=== PATIENT | male | born 1945 | race Caucasian/White ===

== ENCOUNTER 2022-03-03 10:49 | Emergency (ER) | payer MEDICARE, OTHER, SELFPAY ==
[2022-03-03] VITALS (8 sets, daily range): BP systolic 115–177; BP diastolic 67–113; PULSE 75–107; RESP 18; TEMP 36.3; O2SAT 97–99
--- NOTE | 2022-03-03 15:17 | ED.MALEGU ---
HPI - Male Genitourinary General Chief complaint: Urogenital-Male Stated complaint: pain in testicles and scrotum-absess Time Seen by Provider: 03/03/22 15:06 Mode of arrival: Wheelchair History of Present Illness HPI Narrative: 76-year-old male nonsmoker with history of chronic scrotal abscesses, typically managed by the urology group at [facility] presents at their request for evaluation of pain, swelling and drainage from his scrotum. Patient reports he has been having difficulty with pain, swelling and abscesses that have been traditionally treated by antibiotics, most recently he had been on antibiotics a few months ago. He is not a great historian and is unclear the name of his urologist but thinks there at [place]. He states he has been having increasing pain and swelling with incontinence over the past days or weeks. He denies any fever chills nor nausea or vomiting. He denies chest pain or shortness of breath. He denies abdominal pain constipation or diarrhea. Related Data Previous Rx's Medication Instructions Recorded sulfamethoxazole 800 1 tab PO BID 10 Days #20 tab 03/03/22 mg-trimethoprim 160 mg tablet (Bactrim DS) Allergies Allergy/AdvReac Type Severity Reaction Status Date / Time No Known Drug Allergies Allergy Verified 03/03/22 11:19 Review of Systems Review of Systems Narrative: GENERAL: Denies chills, fatigue, malaise, fever, sweats. HEENT: Denies sinus pain, ear pain, sore throat, difficulty swallowing, dizziness. RESPIRATORY: Denies dyspnea, cough, wheezing, hemoptysis, sputum. CARDIOVASCULAR: Denies chest pain, palpitations, orthopnea, edema, GASTROINTESTINAL: Denies nausea, vomiting, abdominal pain, diarrhea, constipation, melena. : See HPI. MUSCULOSKELETAL: denies weakness, joint pain, or bony pain SKIN: see HPI NEUROLOGIC: Denies weakness, headache, numbness, change in speech, confusion, seizures, incoordination. PSYCHIATRIC: No concerning psychosocial issues. 12 point review of systems is negative except for those stated above Exam Narrative Exam Narrative: GENERAL: [76] year old patient appears stated age. Well-developed patient, in mild distress. GCS 15 HEAD: Atraumatic. Normocephalic. EYES: Pupils equal round and reactive. Extraocular motions intact. No scleral icterus. No injection or drainage. ENT: Nose without bleeding, purulent drainage. Throat without erythema, tonsillar hypertrophy or exudate. Airway patent. NECK: Trachea midline. Non tender CARDIOVASCULAR: Tachycardic but regular rhythm without murmurs, gallops, or rubs. RESPIRATORY: Clear to auscultation. Breath sounds equal bilaterally. No wheezes, rales, or rhonchi. GASTROINTESTINAL: Abdomen soft, non-tender, nondistended. : Swollen, tender, mildly erythematous scrotum with multiple areas of induration, no obvious fluctuance, concealed phallus EXTREMITIES: No edema or joint tenderness. BACK: Nontender without deformity or crepitance. No flank tenderness. NEURO: AOx3. SKIN: No rash or erythema of visible areas Initial Vital Signs Initial Vital Signs: Vital Signs Temperature 97.4 F L 03/03/22 11:14 Pulse Rate 106 H 03/03/22 11:14 Respiratory Rate 18 03/03/22 11:14 Blood Pressure 117/78 03/03/22 11:14 Pulse Oximetry 98 03/03/22 11:14 Course Orders Ordered: ED Orders 03/03/22 15:18 US scrotum Stat 03/03/22 15:56 Complete Blood Count AUTO DIFF Stat Comprehensive Metabolic Panel Stat Discontinued Medications Lidocaine/Sodium Bicarbonate (Lido 1%/Sod Bicarb 8.4% (10ml) 10 Ml Syringe) 10 ml INJ NOW ONE Stop: 03/03/22 17:17 Last Admin: 03/03/22 17:23 Dose: 10 ml Documented by: ROSIE Consultations Consultation #1: [facility] called, he does go to their group. Records requested. call center consultant urology paged (Cyndi) discussed clinical course, physical exam findings and ultrasound findings. Requests discharge on Bactrim, close follow-up and return precautions. Time: 15:28 Vital Signs Vital signs: Vital Signs - 8 hr 03/03/22 14:53 03/03/22 15:00 03/03/22 15:30 Pulse Rate 107 H 90 78 Blood Pressure 115/81 120/79 116/67 Pulse Oximetry 97 97 97 03/03/22 16:00 03/03/22 16:01 03/03/22 16:30 Pulse Rate 87 83 85 Blood Pressure 170/94 H 177/113 H Pulse Oximetry 99 98 97 03/03/22 17:00 Pulse Rate 75 Blood Pressure Pulse Oximetry 97 MDM - Male Genitourinary Lab Data Result diagrams: 03/03/22 15:56 03/03/22 15:56 Labs: Lab Results 03/03/22 03/03/22 Range/Units 15:56 15:56 WBC 8.2 (4.5-11.0) X10^3/uL RBC 3.56 L (4.5-5.9) X10^6/uL Hgb 11.0 L (13.5-17.5) g/dL Hct 32.7 L (41-53) % MCV 91.7 (80-100) fL MCH 30.9 (26-34) PG MCHC 33.7 (30-36) % RDW 14.9 H (11.6-14.8) % Plt Count 236 (150-400) X10^3/uL Neut % (Auto) 75.7 H (50-75) % Lymph % (Auto) 12.4 L (25-40) % [place] % (Auto) 7.0 (3-14) % Eos % (Auto) 3.5 (2-4) % Baso % (Auto) 1.4 (0-2) % Neut # (Auto) 6200 (3693-4113) /uL Lymph # (Auto) 1000 L (5430-6287) /uL [place] # (Auto) 600 (0-900) /uL Eos # (Auto) 300 (0-450) /uL Baso # (Auto) 100 (0-100) /uL Sodium 140 (137-145) mmol/L Potassium 4.2 (3.4-5.1) mmol/L Chloride 106 (98-107) mmol/L Carbon Dioxide 29 (22-32) mmol/L BUN 22 H (9-20) mg/dL Creatinine 0.79 (0.66-1.25) mg/dL Estimated GFR > 60 (>60) mL/min BUN/Creatinine Ratio 27.8 H (6-22) Glucose 140 H (80-110) mg/dL Calcium 9.2 (8.4-10.2) mg/dL Total Bilirubin 0.4 (0.2-1.3) mg/dL AST 20 (17-59) IU/L ALT 13 (<50) IU/L Alkaline Phosphatase 107 (38-126) U/L Total Protein 8.1 (6.3-8.2) g/dL Albumin 3.5 (3.5-5.0) g/dL Globulin 4.6 H (1.7-4.1) g/dL Albumin/Globulin Ratio 0.8 L (1.0-2.8) Discharge Plan Departure Patient Disposition: Home Clinical Impression: Abscess of scrotal wall Instructions: DI for Skin Abscess Activity Restrictions/Additional Instructions: *You have been diagnosed with [scrotal wall infection with possible abscess *What to do: *Please continue to take your regular medications as directed. [ x] New medication prescriptions sent to your pharmacy: [[facility] ] [ ] New medication written as a paper prescription [ ] No new medications given *Please follow up with your urologist in the next few days. Please call tomorrow morning, let them know that you were seen in the emergency department and that Dr. Banks and Dr. Hanna want you seen in follow up this week *Return to Emergency Department if you should have any new, worsening or concerning symptoms, such as [fever greater than 101 F, shaking chills, worsening pain, persistent vomiting or other bothersome symptoms] Prescriptions: New sulfamethoxazole-trimethoprim [Bactrim DS] 800-160 mg tablet 1 tab PO BID 10 Days Qty: 20 0RF Referrals: Todd Daniel MD [Primary Care Provider] -
--- NOTE | 2022-03-03 15:18 | DI.US.S_ITS ---
PROCEDURE: US SCROTUM INDICATIONS: PAIN; SWELLING TECHNIQUE: Real-time scanning was performed of the scrotum and testicles, with image documentation. Color and pulse Doppler interrogation was performed of both testicles. COMPARISON: None. FINDINGS: Right: Testicle is normal in size at 4.8 x 2.4 x 2.1 cm, and homogenous in echotexture. Epididymal head cyst is noted measuring 5 x 5 x 7 mm. No varicoceles. Large hydrocele is present. Overlying scrotal skin is normal in thickness. Left: Testicle is normal in size at 4.5 x 2.5 x 2.5 cm, and homogeneous in echotexture. Epididymis is not visualized. No hydrocele or varicoceles. Overlying scrotal skin demonstrates thickening as well as focus of heterogeneous echogenicity measuring approximately 2.6 x 2.5 x 3.6 cm. Doppler: Color and pulse Doppler demonstrate normal and symmetric arterial flow in both testicles. IMPRESSION: Large right hydrocele. Focus of heterogeneous echogenicity within the scrotal wall on the left which has imaging appearance consistent with prior clinical history of abscess. Dictated by: Jessica Gutiérrez M.D. on 03/03/2022 at 16:35 Approved by: Jessica Gutiérrez M.D. on 03/03/2022 at 16:37
[2022-03-03 16:06] LABS: Add Manual Diff / Slide Review NO; Basophils Absolute Auto 100 /uL (0-100); Basophils Percent Auto 1.4 % (0-2); Eosinophils Absolute Auto 300 /uL (0-450); Eosinophils Percent Auto 3.5 % (2-4); Hematocrit 32.7 % (41-53); Lymphocytes Absolute Auto 1000 /uL (1100-4500); Lymphocytes Percent Auto 12.4 % (25-40); Mean Corpuscular HGB Conc 33.7 % (30-36); Mean Corpuscular Hemoglobin 30.9 PG (26-34); Mean Corpuscular Volume 91.7 fL (80-100); Monocytes Absolute Auto 600 /uL (0-900); Neutrophils Absolute Auto 6200 /uL (1500-7000); Neutrophils Percent Auto 75.7 % (50-75); Platelet Count 236 X10^3/uL (150-400); Red Blood Cell Count 3.56 X10^6/uL (4.5-5.9); Red Cell Distribution Width 14.9 % (11.6-14.8); White Blood Cell Count 8.2 X10^3/uL (4.5-11.0)
[2022-03-03 16:24] LABS: Alanine Aminotransferase 13 IU/L (<50); Albumin 3.5 g/dL (3.5-5.0); Albumin Globulin Ratio 0.8 (1.0-2.8); Alkaline Phosphatase 107 U/L (38-126); Aspartate Aminotransferase 20 IU/L (17-59); BUN Creatinine Ratio 27.8 (6-22); Bilirubin Total 0.4 mg/dL (0.2-1.3); Blood Urea Nitrogen 22 mg/dL (9-20); Calcium 9.2 mg/dL (8.4-10.2); Carbon Dioxide 29 mmol/L (22-32); Chloride 106 mmol/L (98-107); Estimated Glomerular Filt Rate > 60 mL/min (>60); Globulin 4.6 g/dL (1.7-4.1); Glucose 140 mg/dL (80-110); HEMOLYSIS < 15 (0-50); Potassium 4.2 mmol/L (3.4-5.1); Sodium 140 mmol/L (137-145); Total Protein 8.1 g/dL (6.3-8.2)
[2022-03-03] MEDS: LIDO 1%/SOD BICARB 8.4% (10ML) 10 ML SYRINGE INJ (17:23)
== END 2022-03-03 18:03 | disposition home or self-care (01) ==
PROVIDERS: Emergency Provider Emergency Medicine; PCP Family Medicine
DX: N49.2 Inflammatory disorders of scrotum (principal)
CPT/HCPCS: 36415; 76870; 80053; 85025; 99283; 99284

== ENCOUNTER 2024-03-02 10:24 | Emergency (ER) | payer MEDICARE, OTHER, SELFPAY ==
[2024-03-02] VITALS (20 sets, daily range): BP systolic 85–128; BP diastolic 50–81; PULSE 55–83; RESP 18; TEMP 36.2; O2SAT 93–100
--- NOTE | 2024-03-02 10:37 | ED.MALEGU ---
HPI - Male Genitourinary General Chief complaint: Urogenital-Male Stated complaint: Catheter Blockage Time Seen by Provider: 03/02/24 10:36 Source: patient, RN notes reviewed, old records reviewed and other (Hospice physician) Mode of arrival: EMS Limitations: no limitations History of Present Illness HPI Narrative: 78-year-old male hospice patient sent for concern for catheter malfunction. Patient has a suprapubic catheter in place was reportedly pulled out overnight at 8:00 p.m. but on prior arrival catheter is present does look like it may have had some blockage but it is actively draining at the moment. Patient states he feels like he needs to urinate he did have a little bit of urine out of his penis but describes it as painful. He denies fevers. States he has had some abdominal pain no back or flank pain. No other GI or urinary symptoms. We were able to pull off urine from the catheter to send for UA. Patient is DNR/DNI/hospice but he is open to oral antibiotics if needed. He defers anything for pain initially. Related Data Previous Rx's Medication Instructions Recorded nitrofurantoin 100 mg PO Q12H 7 days #14 caps 03/02/24 monohydrate/macrocrystals 100 mg capsule (Macrobid) Allergies Allergy/AdvReac Type Severity Reaction Status Date / Time No Known Drug Allergies Allergy Verified 03/03/22 11:19 Review of Systems Review of Systems ROS Unobtainable: All systems reviewed & are unremarkable except as noted in HPI and below Patient History Social History Smoking Status: Current every day smoker Exam Narrative Exam Narrative: GENERAL: Alert and oriented x three, male in mild distress. HEENT: Head normocephalic, atraumatic, EOMI, pupils reactive, face symmetric, moist mucous membranes NECK: Supple, full range of motion CARDIOVASCULAR: Regular rate and rhythm without murmurs, rubs or gallops. RESPIRATORY: Breath sounds equal bilaterally, no wheezes rales or rhonchi. ABDOMEN: Soft, tender over the pannus patient has erythema with a little bit of skin breakdown between the folds where the catheter is in place. Catheter is in place with gentle tug does not come out. Patient has dark yellow urine, there does appear to be some sediment throughout the catheter. Normoactive bowel sounds all 4 quadrants. No guarding or rebound, rigidity, no mass : No CVA tenderness. Male:no penile discharge or lesions, testicles non-tender, cremasteric reflex intact, no inguinal hernias noted. EXTREMITIES: Normal range of motion, no clubbing or edema. Neurovascularly intact NEUROLOGICAL: Cranial nerves II through XII grossly intact. Moving all extremities SKIN: Warm, dry, no petechiae, no rashes or lesions. Initial Vital Signs Initial Vital Signs: Vital Signs Pulse Rate 73 03/02/24 10:29 Blood Pressure 103/67 03/02/24 10:29 Pulse Oximetry 96 03/02/24 10:29 Course Orders Ordered: ED Orders 03/02/24 10:35 UA Complete [Urinalysis and Microscopic] Stat Urine Culture Stat 03/02/24 12:25 CT kidney ureter bladder (KUB) Stat Discontinued Medications Lidocaine HCl (Lidocaine 2% (Glydo) 6 Ml Gel) 6 ml TOP NOW ONE Stop: 03/02/24 11:49 Nitrofurantoin Macrocrystals (Nitrofurantoin Er 100 Mg Capsule) 100 mg PO NOW ONE Stop: 03/02/24 11:07 Last Admin: 03/02/24 12:38 Dose: 100 mg Documented By: WILLIAM Oxycodone HCl (Oxycodone Ir 5 Mg Tablet) 5 mg PO NOW ONE Stop: 03/02/24 10:44 Last Admin: 03/02/24 10:56 Dose: 5 mg Documented By: [facility] Vital Signs Vital signs: Vital Signs - 8 hr 03/02/24 10:29 03/02/24 10:29 03/02/24 10:30 Temperature Pulse Rate 73 77 Respiratory Rate Blood Pressure 103/67 Pulse Oximetry 96 96 Oxygen Delivery Method 03/02/24 10:31 03/02/24 10:31 03/02/24 10:36 Temperature 97.2 F L Pulse Rate 78 72 Respiratory Rate 18 Blood Pressure 124/81 124/81 Pulse Oximetry 93 95 Oxygen Delivery Method Room Air 03/02/24 11:00 03/02/24 11:00 03/02/24 11:30 Temperature Pulse Rate 62 75 Respiratory Rate Blood Pressure 115/66 Pulse Oximetry 96 99 Oxygen Delivery Method 03/02/24 11:30 03/02/24 12:00 03/02/24 12:30 Temperature Pulse Rate 78 69 Respiratory Rate Blood Pressure 106/74 Pulse Oximetry 100 97 Oxygen Delivery Method 03/02/24 12:30 03/02/24 13:00 03/02/24 13:30 Temperature Pulse Rate 63 65 Respiratory Rate Blood Pressure 93/59 L Pulse Oximetry 97 98 Oxygen Delivery Method 03/02/24 13:41 03/02/24 13:41 03/02/24 14:00 Temperature Pulse Rate 83 56 L Respiratory Rate Blood Pressure 128/69 Pulse Oximetry 100 98 Oxygen Delivery Method 03/02/24 14:30 03/02/24 14:30 03/02/24 14:38 Temperature Pulse Rate 59 L 58 L Respiratory Rate Blood Pressure 85/50 L Pulse Oximetry 98 98 Oxygen Delivery Method 03/02/24 14:38 03/02/24 14:40 03/02/24 14:40 Temperature Pulse Rate 58 L Respiratory Rate Blood Pressure 96/51 L 97/53 L Pulse Oximetry 98 Oxygen Delivery Method 03/02/24 14:50 03/02/24 14:50 03/02/24 15:00 Temperature Pulse Rate 58 L 58 L Respiratory Rate Blood Pressure 102/58 L Pulse Oximetry 98 99 Oxygen Delivery Method 03/02/24 15:00 03/02/24 15:10 03/02/24 15:10 Temperature Pulse Rate 55 L Respiratory Rate Blood Pressure 91/55 L 123/60 Pulse Oximetry 97 Oxygen Delivery Method 03/02/24 15:20 03/02/24 15:20 03/02/24 15:30 Temperature Pulse Rate 73 59 L Respiratory Rate Blood Pressure 116/61 Pulse Oximetry 96 100 Oxygen Delivery Method 03/02/24 15:30 Temperature Pulse Rate Respiratory Rate Blood Pressure 97/52 L Pulse Oximetry Oxygen Delivery Method MDM - Male Genitourinary Lab Data Labs: Lab Results 03/02/24 Range/Units 10:35 Urine Color Yellow Urine Appearance Cloudy Urine pH 8.5 H (4.5-8.0) Ur Specific [place] <=1.005 (1.000-1.035) Urine Protein 3+ H (Negative) Urine Glucose (UA) Negative (Negative) g/dL Urine Ketones Negative (NEGATIVE) Urine Occult Blood 1+ H (Negative) Urine Nitrate Positive H (Negative) Urine Bilirubin Negative (NEGATIVE) Urine Urobilinogen 0.2 (0.2) E.U./dL Ur Leukocyte Esterase 2+ H (NEGATIVE) Urine RBC 1-5/hpf (0-5/HPF) Urine WBC 5-10/hpf H (0-5/HPF) Ur Squamous Epith Cells 1-5 /hpf (0-5/HPF) Urine Bacteria Many (>30) H (None) Ur Culture Indicated? Specimen cultured Vol Urine Centrifuged 10ml (spun) MDM Narrative Medical decision making narrative: UA was sent, treat positive 2+ leuks 5-10 WBCs many bacteria. Patient's urine was sent for culture. We will start oral antibiotic. Catheter was flushed here in the department. She has drained a small amount of urine. There has quite a bit of sediment were not able to flush it at all or draw back. Attempted to remove and replace but catheter appears to be stuck unclear if possibly the bulb has calcified. Nursing and myself both attempted. Discussed with patient he does not think that the catheters ever been changed over he states it has been there for at least a couple months maybe a year. He thinks it was placed at a hospital in [place], [place] area he is unsure of exact location. Spoke with urology, Dr. Ramirez would like CT KUB for better evaluation of the catheter and if the balloon is inflated or deflated. If necessary can always tried to place a catheter through the penis. Would ask for CT prior to this. CT KUB shows [id number] bilateral hydro no obstructing stones there is a stone in the right kidney as well as the bladder right perinephric stranding and fluid, asymmetric urinary bladder wall thickening, small volume low-density intraperitoneal fluid predominantly pericolic gutters of indeterminate etiology 3.5 cm right renal mass concerning for renal carcinoma, 6 x 7 cm infrarenal abdominal aortic aneurysm increased in size compared to 202 and stable left adrenal nodule. Attempted to do slight the balloon once again, gave steady slow pressure and catheter came out without any significant issue. Patient had quite a bit of urine out and a 16 Frisian catheter was replaced without issue. Is draining here in the department afterwards. Discussed with patient he is unsure if they use any topical medications for the changes on his abdomen. Urology was updated. Patient is hospice and had spoken with his hospice physician prior to. He states he is open to antibiotics could contribute to pain so was treated. Discharge Plan Departure Patient Disposition: Home Clinical Impression: Blocked suprapubic catheter Activity Restrictions/Additional Instructions: Please follow up with Urology, your catheter should be changed monthly so it does not develop calcifications or blockages. You do appear to have a UTI today, prescription for antibiotics is included after our discussion. I would recommend topical barrier ointments to the affected area on your skin if they are not already in use. Prescription was sent to [facility]. Please return if you have new abdominal pain if you are catheter is not draining or other new or concerning changes. Prescriptions: New nitrofurantoin monohyd/m-cryst [Macrobid] 100 mg capsule 100 mg PO Q12H 7 Days Qty: 14 0RF Rx Instructions: must administer with a meal/food Referrals: Leo Delgadillo MD [Primary Care Provider] - Stand Alone Forms: Patient Portal/API
[2024-03-02 10:41] LABS: Appearance Urine UA CLOUDY; Bilirubin Urine UA NEGATIVE (NEGATIVE); Color Urine UA YELLOW; Glucose Urine UA NEGATIVE (Negative); Ketones Urine UA NEGATIVE (NEGATIVE); Leukocyte Esterase Urine UA 2+ (NEGATIVE); Nitrite Urine UA POSITIVE (Negative); Occult Blood Urine UA 1+ (Negative); Protein Urine UA 3+ (Negative); Specific Gravity Urine UA <=1.005 (1.000-1.035); Urobilinogen Urine UA 0.2 E.U./dL (0.2); pH Urine UA 8.5 (4.5-8.0)
[2024-03-02 10:43] LABS: Urine Volume 10mL (spun)
[2024-03-02 10:47] LABS: Bacteria Urine Many (>30); RBC Urine 1-5/HPF (0-5/HPF); WBC Urine 5-10/HPF (0-5/HPF)
[2024-03-02 10:48] LABS: Culture Indicated Urine Specimen Cultured; Squamous Epithelial Cell Urine 1-5 /HPF (0-5/HPF)
[2024-03-02] MEDS: OXYCODONE IR 5 MG TABLET PO (10:56)
--- NOTE | 2024-03-02 12:00 | PC.NURSE ---
attempted to flush catheter with no success. sediment moves in tube but unable to milk or pull back urine. notified provider. verbal order to change catheter and attempt a bigger size (18F instead of 16F). deflated balloon of catheter and pulled back on catheter for removal. catheter come part way out and then suddenly meets resistance. nurse notified provider, provider came into room and also tried manual manipulation of catheter. balloon filled back up with 6cc. exam of patient urethra shows penis is very inflammed and skin breakdown is prominent. notified provider possible attempt at urethral catheter could be attempted but concerns for further breakdown of skin is probable. bladder scan done, shows 350ml of urine in bladder.
--- NOTE | 2024-03-02 12:25 | DI.CT.S_ITS ---
PROCEDURE: CT KIDNEY URETER BLADDER (KUB) INDICATIONS: suprapubic catheter, won't deflate, blocked, cant get out. TECHNIQUE: Axial sections were acquired from the lung bases to the pubic symphysis. Coronal and sagittal reformats were performed. For radiation dose reduction, the following was used: automated exposure control, adjustment of mA and/or kV according to patient size. COMPARISON: Outside Film, CT, CT ABDOMEN PELVIS WITH CONTRAST, 09/27/2021, 16:37. FINDINGS: Image quality: Diagnostic. Lower Chest: No significant findings. URINARY: 6 millimeter nonobstructing stone in the lower pole of the right kidney. 8 millimeters stone in the dependent portion of the urinary bladder. Mild to moderate bilateral hydroureteronephrosis to the level of the UVJ is without obstructing stone. Left perinephric stranding and fluid. 3.4 centimeter partially exophytic left adrenal mass slightly increased in size compared to prior exam. Asymmetric urinary bladder wall thickening. Suprapubic catheter in the urinary bladder. Prostate is enlarged. ABDOMEN: Liver: No contour-deforming solid mass. Gallbladder: No radiopaque gallstones or wall thickening. Biliary ducts: No biliary dilation. Pancreas: No ductal dilation. Spleen: Size is within normal limits. Adrenal Glands: Stable 2.2 centimeter left adrenal nodule. Right adrenal gland is normal. Stomach and Bowel: Normal colonic caliber, without significant wall thickening. Scattered colonic diverticuli without evidence of diverticulitis. The appendix is normal. Peritoneum: Free fluid in the bilateral pericolic gutters. No free air. Ventral Wall: No hernia. Abdominal Nodes: No enlarged retroperitoneal or mesenteric lymph nodes. Vessels: 6.7 x 7.2 centimeter infrarenal abdominal aortic aneurysm is increased in size compared to prior exam. PELVIS: Pelvic Organs: Unremarkable. Pelvic Nodes: Unremarkable. Miscellaneous: No inguinal hernias are seen. Bones: Spine degenerative disc disease and facet arthropathy.. IMPRESSION: Mild to moderate bilateral hydroureteronephrosis to the level of the UVJ is. No obstructing ureteral stones identified. 6 millimeter nonobstructing right renal stone and 8 millimeter urinary bladder stone. Right perinephric stranding and fluid which could be due to obstruction or superimposed urinary tract infection. Recommend correlation with urinalysis data. Asymmetric urinary bladder wall thickening which could be due to cystitis or neoplastic process. Recommend correlation with urinalysis data. Small volume low-density intraperitoneal fluid predominantly in the pericolic gutters of indeterminate etiology. 3.4 centimeter right renal mass concerning for renal cell carcinoma is increased in size compared to September 27, 2021. 6.7 x 7.2 centimeter infrarenal abdominal aortic aneurysm increased in size compared to September 27, 2021. Stable left adrenal nodule. Dictated by: Marguerite Hodge MD, PhD on 03/02/2024 at 13:02 Approved by: Marguerite Hodge MD, PhD on 03/02/2024 at 13:18
[2024-03-02] MEDS: NITROFURANTOIN ER 100 MG CAPSULE PO (12:38)
--- NOTE | 2024-03-02 15:44 | PC.NURSE ---
late entry. after CT results provider into room with nurse, attempted to remove catheter once more. catheter was dislodged and removed. large amount of urine came from site, new catheter placed as quickly as possible. catheter then flushed with 100ml saline. by last 20ml flush, return was clear. overnight bag placed for drainage.
--- NOTE | 2024-03-02 16:16 | CM.SWNOTE ---
ED SUPERVISOR SAFETY DEPOSIT Note: SUPERVISOR SAF[employer]Y DEPOSIT was asked to speak with pt's and other contacts in chart to obtain pt's home address (only [address] on file). SUPERVISOR [employer] DEPOSIT left a voice message with emergency contact, Clarence, requesting a call back. SUPERVISOR SAF[employer]Y DEPOSIT spoke with pt's , Vidya, and discussed pt's disposition home after being medically clear. SUPERVISOR SAFETY DEPOSIT obtained pt's address on [address] and updated pt's chart. [facility] was called by [facility] and arranged transport for 1600. SUPERVISOR SAFETY DEPOSIT updated pt's with ETA. SUPERVISOR SAF[employer] DEPOSIT receieved a call back from pt's daughter, Clarence, and discussed pt's dispo. Pt's daughter confirmed that pt has services with [facility] and manager pet is Ileana. SUPERVISOR SAFETY DEPOSIT called [facility] and left a voice message with flooring installer, Ileana, and notified that pt will be discharging back home via [facility]. RUBY Hernandez
== END 2024-03-02 16:22 | disposition home or self-care (01) ==
PROVIDERS: Emergency Provider Emergency Medicine; PCP Family Medicine
DX: T83.090A Other mechanical complication of cystostomy catheter, initial encounter (principal)
CPT/HCPCS: 51798; 74176; 81001; 87077; 87086; 87186; 99284

== ENCOUNTER 2024-03-08 19:50 | Emergency (ER) | payer MEDICARE, OTHER, SELFPAY ==
[2024-03-08] VITALS (12 sets, daily range): BP systolic 102–133; BP diastolic 61–72; PULSE 74–89; RESP 18–20; TEMP 36.4; O2SAT 87–98; BMI 32.1
--- NOTE | 2024-03-08 20:05 | ED.GENADULT ---
HPI - General Adult General Chief complaint: Urogenital-Male Stated complaint: Catheter issue Time Seen by Provider: 03/08/24 20:05 Source: patient and EMS Mode of arrival: EMS History of Present Illness HPI narrative: 78-year-old gentleman, hospice patient with Oleary catheter in place. The balloon seems to be spontaneously deflating and the catheter is falling out. This happened couple of days ago and he was seen by medics. It happened again today. He was transported by medics to the ER for catheter replacement. Patient is reportedly on hospice for congestive heart failure with goals of comfort only. No medical records are available at this time Related Data Previous Rx's Medication Instructions Recorded nitrofurantoin 100 mg PO Q12H 7 days #14 caps 03/02/24 monohydrate/macrocrystals 100 mg capsule (Macrobid) cefpodoxime 200 mg tablet 200 mg PO Q12H #20 tabs 03/04/24 Allergies Allergy/AdvReac Type Severity Reaction Status Date / Time No Known Drug Allergies Allergy Verified 03/03/22 11:19 Patient History Social History Smoking Status: Current every day smoker Smoking Status: Current every day smoker tobacco type: vaping alcohol intake frequency: other Substance Use Type: marijuana Exam Initial Vital Signs Initial Vital Signs: Vital Signs Temperature 97.5 F L 03/08/24 19:51 Pulse Rate 89 03/08/24 19:51 Respiratory Rate 20 03/08/24 19:51 Blood Pressure 120/72 03/08/24 19:51 Pulse Oximetry 98 03/08/24 19:51 Oxygen Delivery Method Room Air 03/08/24 19:51 Course Orders Ordered: Discontinued Medications Lidocaine HCl (Lidocaine 2% (Glydo) 6 Ml Gel) 6 ml TOP NOW ONE Stop: 03/08/24 22:38 Last Admin: 03/08/24 22:59 Dose: 6 ml Documented By: HANNAH Lidocaine HCl (Lidocaine 2% (Glydo) 6 Ml Gel) 6 ml TOP NOW ONE Stop: 03/08/24 22:47 Last Admin: 03/08/24 22:59 Dose: 6 ml Documented By: HANNAH Lidocaine/Prilocaine (Lidocaine/Prilocaine 5 Gm) 5 gm TOP NOW ONE Stop: 03/08/24 22:41 Last Admin: 03/08/24 22:59 Dose: 5 gm Documented By: HANNAH Vital Signs Vital signs: Vital Signs - 8 hr 03/08/24 19:51 03/08/24 20:30 03/08/24 20:31 Temperature 97.5 F L Pulse Rate 89 84 Respiratory Rate 20 Blood Pressure 120/72 133/66 Pulse Oximetry 98 98 Oxygen Delivery Method Room Air 03/08/24 20:59 03/08/24 21:00 03/08/24 21:02 Temperature Pulse Rate 81 87 Respiratory Rate Blood Pressure 118/66 Pulse Oximetry 98 87 L Oxygen Delivery Method 03/08/24 21:29 03/08/24 21:30 03/08/24 22:00 Temperature Pulse Rate 82 Respiratory Rate Blood Pressure 113/70 115/67 Pulse Oximetry 98 Oxygen Delivery Method 03/08/24 22:00 Temperature Pulse Rate 79 Respiratory Rate 18 Blood Pressure Pulse Oximetry 97 Oxygen Delivery Method Medical Decision Making MDM Narrative Medical decision making narrative: CC: Oleary catheter balloon deflated and falling out Complicating co-morbidities: Hospice patient, and speaking with the hospice doctor on-call, Dr. Glenda Patton, she believes his diagnosis is congestive heart failure. She will speak with the social organization professor regarding hospice versus other pain and options for today's visit Medical record review: It does appear that the patient was admitted to [facility] December 08 with necrotizing fasciitis/Fredy's gangrene. Who was again admitted to [facility] January 11 with ?unspecified complication of prosthetic device, implant and graft with continued Fredy gangrene and necrotizing fasciitis listed as chief complaints: Additional records and details details of those visits, specifically urology notes, are not available. POLST form is included an indicates DNR with selective intervention Differential considered: Defective catheter, somebody at home is actively deflating the balloon Exam: He has a newer appearing suprapubic catheter orifice folded into his intertriginous folds with fairly significant intertrigo. His penis has a very sclerotic urethral orifice. Treatments: Nursing staff was unable to pass a suprapubic catheter. On my examination and with my attempts, the suprapubic catheter pathway is not well formed and with multiple attempts with different size catheters, attempts to try to use stylette or dilator inside the catheter to give it more direction as I am trying to advanced through the new and minimally scarred suprapubic pathway have been unsuccessful. I did try urethral catheterization and the urethral meatus is essentially stenosed closed. Consultations: Discussed with the hospice physician Dr. Patton, will talk with Dr. Mccord, urology and again review with Dr. Patton. Dr. Patton has suggested we do what is needed to make sure that this gentleman can void one way or another. Dr Mccord is in the department and uses dilators, cystoscope and a guidewire to place a Oleary catheter. There were strictures at the urethral meatus as well as deeper near the prostate. His recommendation is that the catheter placed today be left in place from minimum of 30 days maximum of 45. It may need to be changed over a wire. His recommendation was the patient follow up with the urologic service that place the original Oleary catheter. Would recommend if that isn't possible as it was not the [facility], that he schedule an appointment with the urologist for changing current Oleary catheter due to complications. Expect within 2-3 months that that tracked will heal enough that nursing care at home we will be completely appropriate. Discussion: 78-year-old gentleman on hospice with Oleary catheter issue. He had a suprapubic catheter placed in intertriginous folds that has become dislodged multiple times. We are unable to place with multiple attempts. Dr. Mccord, urology came into the department and dilated both urethral and prostate strictures to place a Oleary catheter. Catheter is draining appropriately at this time it needs to remain in place as described above. This is shared with the hospice nurse available in the emergency department this evening. Given the multiple attempts at bladder Re cannulation and dilation etcetera patient was given a single dose of oral Levaquin prior to discharge from the emergency department. Patient will be discharged back home to hospice. Discharge Plan Departure Patient Disposition: Home Clinical Impression: Other urethral stricture, male, overlapping sites, Cand[place] intertrigo, Hospice care patient Problem with Oleary catheter Qualifiers: Encounter type: initial encounter Qualified Code(s): T83.9XXA - Unspecified complication of genitourinary prosthetic device, implant and graft, initial encounter Instructions: How to Care for Your Oleary Catheter -- Male Activity Restrictions/Additional Instructions: Thank you for coming in tonight We were unable to place the suprapubic catheter. Dr. Mccord, our urologist came in to help place a Oleary catheter through your penis. This did require quite a bit of instrumentation, dilation, a camera and the catheter placed over a wire. It is very important that the catheter remain in place for a minimum of 30 days. To replace it, I would strongly recommend scheduling an appointment with Urology to have it replaced in the office. Please let the urologist know that the catheter in place was placed over a wire and replacing the catheter over a wire may be a reasonable choice with the 1st catheter change With all of the instrumentation that was done this evening, you are given a single dose of levofloxacin, an antibiotic. We were in contact with the hospice nurses and physicians during your emergency room stay. Prescriptions: No Action nitrofurantoin monohyd/m-cryst [Macrobid] 100 mg capsule 100 mg PO Q12H 7 Days Qty: 14 0RF Rx Instructions: must administer with a meal/food cefpodoxime 200 mg tablet 200 mg PO Q12H Qty: 20 0RF Rx Instructions: must administer with a meal/food Stand Alone Forms: Patient Portal/API
[2024-03-08] MEDS: LIDOCAINE 2% (GLYDO) 6 ML GEL TOP ×2 (22:59)
[2024-03-08] MEDS: LIDOCAINE/PRILOCAINE 5 GM TOP (22:59)
--- NOTE | 2024-03-08 23:39 | PM.CN ---
History of Present Illness Consult details Date Patient Seen: 03/08/24 Time Patient Seen: 10:00 Chief complaint: Catheter issue Reason for consult: Unable to replace suprapubic tube Requesting provider: Belkys Alvarez Narrative: This 78-year-old male who is on hospice was brought to the emergency department by emergency vehicle with complaint of his SP tube having ?fallen out?. Patient is unable to relate a history. The emergency room staff attempted to replace the SP tube but were unable to. Patient also has a very small meatus and the staff were uncomfortable in attempting to place a Oleary catheter. The reason for the SP tube is unknown there is perhaps some evidence that it was placed at [place] though at this point this can not be verified. In any regard the SP tube was placed in a somewhat unusual position in the patient's pannus which is quite mobile and is perhaps why there was difficulty in placing the SP tube.. The time of placement could not be verified. My arrival attempted a 16 [place] catheter at the SP tube site and it would only insert for a distance of approximately 2-2-1/2 inches. The patient again was not helpful in that he had no idea about any of his medical conditions. Inspecting his meatus it was small but patent. It easily accepted a 16 [place] cook S dilator. With this done and open an attempt was made to pass a 16 [place] silicone catheter which was unsuccessful. So at this point cystoscopy with over the wire catheter placement was performed please see the procedure note dictation. This resulted in the placement of a 16 [place] tip catheter with receipt of cloudy clear urine. The patient expressed relief of the lower abdominal discomfort/feeling of need to void. Meds Home Medications and Allergies Home Medications Medication Instructions Recorded Confirmed Type nitrofurantoin 100 mg PO Q12H 7 days #14 caps 03/02/24 Rx monohydrate/macrocrystals 100 mg capsule (Macrobid) cefpodoxime 200 mg tablet 200 mg PO Q12H #20 tabs 03/04/24 Rx Allergies Allergy/AdvReac Type Severity Reaction Status Date / Time No Known Drug Allergies Allergy Verified 03/03/22 11:19 Exam Vital Signs (past 8 hours): - 03/08/24 19:51 03/08/24 20:30 03/08/24 20:31 Temperature 97.5 F L Pulse Rate 89 84 Respiratory Rate 20 Blood Pressure 120/72 133/66 Pulse Oximetry 98 98 Oxygen Delivery Method Room Air 03/08/24 20:59 03/08/24 21:00 03/08/24 21:02 Temperature Pulse Rate 81 87 Respiratory Rate Blood Pressure 118/66 Pulse Oximetry 98 87 L Oxygen Delivery Method 03/08/24 21:29 03/08/24 21:30 03/08/24 22:00 Temperature Pulse Rate 82 Respiratory Rate Blood Pressure 113/70 115/67 Pulse Oximetry 98 Oxygen Delivery Method 03/08/24 22:00 Temperature Pulse Rate 79 Respiratory Rate 18 Blood Pressure Pulse Oximetry 97 Oxygen Delivery Method Oxygen Delivery Method Room Air [facility] Medical History (Updated 03/08/24 @ 23:50 by Jaguar Mccord MD) Urethral false passage Urethral stricture Meatal stenosis Encounter for care or replacement of suprapubic tube Tobacco & Substance Use Smoking Status: Current every day smoker Assessment & Plan Assessment and plan (1) Encounter for care or replacement of suprapubic tube: Status: Acute (2) Meatal stenosis: Status: Acute (3) Urethral false passage: Status: Acute (4) Blocked suprapubic catheter: Qualifiers: Encounter type: sequela Qualified Code(s): T83.090S - Other mechanical complication of cystostomy catheter, sequela Status: Acute (5) Problem with Oleary catheter: Qualifiers: Encounter type: initial encounter Qualified Code(s): T83.9XXA - Unspecified complication of genitourinary prosthetic device, implant and graft, initial encounter Status: Acute (6) Other urethral stricture, male, overlapping sites: Status: Acute (7) Hospice care patient: Status: Acute Plan Assessment and plan: Patient now has a 16 [place] tip catheter and adequate bladder drainage. The patient should follow-up with his urologist who placed the SP tube for replacement if desired. The catheter will need to be exchanged over a wire which can easily be accomplished given the [place] tip catheter which is in place. Measures should be put in place so that the patient can not manipulate the catheter. This is being said given that apparently he has had difficulty with the his SP tube and that the balloon was deflated when he arrived in the emergency department and it was out of the tract but still attached to the patient's leg. Total time approaching 2 hours.
--- NOTE | 2024-03-08 23:53 | P.PCN_ITS ---
Procedures Date/Time Date of procedure: 03/08/24 Time of procedure: 11:20 General Procedure description: Procedure performed: Flexible cystoscopy with urethral dilation and over the wire placement of 16 [place] tip catheter. Surgeon: Flex ROMO Anesthetic: EMLA cream and 2% viscous lidocaine per urethra. Indication: This 78-year-old male who is under hospice care presented to the emergency department with his SP tube having ?fallen out?. It is not able to be replaced and therefore given his history of urethral stricture disease in the finding of meatal stenosis flexible cystoscopy with over the wire placement of [place] tip catheter will be performed or was performed. Procedure in detail: After informed consent was obtained the patient was cleansed with Hibiclens EMLA cream was applied to the glans and meatus and 2% viscous lidocaine instilled within the urethra. Note prior to this lidocaine he had been applied and the meatus gently dilated with a 16 [place] cook S dilator and an attempt made to pass a 16 [place] silicone catheter again this met with resistance and thus we are here for cystoscopy. With the block having set up the cystoscope was inserted and it was found that the patient had a well-healed posterior false passage. Thus the resistance to the 16 [place] catheter. Anteriorly the urethra could be seen and a guidewire a Amplatz extra stiff wire was passed through the urethra and coiled within the bladder. At this point the scope was removed and a cook 18 [place] S dilator was passed easily into the bladder with receipt of clear urine. This was backed out and at this point the 16 [place] catheter was passed over the wire into the bladder where the balloon was filled with 10 cc of sterile water. The wire was removed the catheter was left in good position connected to a drainage bag which drained clear somewhat cloudy urine. Findings: Meatal stenosis, urethral stricture with well healed posterior false passage. SP tube site placed in the patient's pannus off to the side a somewhat unusual position. Impression: Meatal stenosis now dilated posterior false passage well healed with urethral stricture which is now dilated to 18 [place] patient with a 16 [place] tip catheter draining clear urine in place with 10 cc in the balloon. SP tube site in the patient's pannus and off to the side this placement position likely contributed to the inability to replace the SP tube. Plan: Patient to follow-up with his urologist and caregivers he will be returned to hospice I would recommend that if he does have a catheter change it be done over a wire which the [place] tip catheter should easily facilitate. Abscess I/D Sedation/analgesia: none Anesthetic used: lidocaine 2% (2% viscous lidocaine and EMLA cream) Catheter Insertion (Urinary) Catheter [place] Size: 16 Catheter balloon size (mL): 10 Topical anesthesia used: Yes
[2024-03-09] VITALS: BP 114/80; PULSE 88; RESP 18; O2SAT 93
[2024-03-09] MEDS: levoFLOXacin 250 MG TABLET 750 MG PO (00:06)
--- NOTE | 2024-03-09 00:06 | PM.PROC.1 ---
Procedures Date/Time Date of procedure: 03/08/24 Time of procedure: 11:20 General Procedure description: Procedure performed: Flexible cystoscopy with urethral dilation and over the wire placement of 16 [place] Teller tip catheter. Surgeon: Flex ROMO Anesthetic: EMLA cream and 2% viscous lidocaine per urethra. Indication: This 78-year-old male who is under hospice care presented to the emergency department with his SP tube having ?fallen out?. It is not able to be replaced and therefore given his history of urethral stricture disease in the finding of meatal stenosis flexible cystoscopy with over the wire placement of [place] tip catheter will be performed or was performed. Procedure in detail: After informed consent was obtained the patient was cleansed with Hibiclens EMLA cream was applied to the glans and meatus and 2% viscous lidocaine instilled within the urethra. Note prior to this lidocaine he had been applied and the meatus gently dilated with a 16 [place] cook S dilator and an attempt made to pass a 16 [place] silicone catheter again this met with resistance and thus we are here for cystoscopy. With the block having set up the cystoscope was inserted and it was found that the patient had a well-healed posterior false passage. Thus the resistance to the 16 [place] catheter. Anteriorly the urethra could be seen and a guidewire a Amplatz extra stiff wire was passed through the urethra and coiled within the bladder. At this point the scope was removed and a cook 18 [place] S dilator was passed easily into the bladder with receipt of clear urine. This was backed out and at this point the 16 [place] catheter was passed over the wire into the bladder where the balloon was filled with 10 cc of sterile water. The wire was removed the catheter was left in good position connected to a drainage bag which drained clear somewhat cloudy urine. Findings: Meatal stenosis, urethral stricture with well healed posterior false passage. SP tube site placed in the patient's pannus off to the side a somewhat unusual position. Impression: Meatal stenosis now dilated posterior false passage well healed with urethral stricture which is now dilated to 18 [place] patient with a 16 [place] Teller tip catheter draining clear urine in place with 10 cc in the balloon. SP tube site in the patient's pannus and off to the side this placement position likely contributed to the inability to replace the SP tube. Plan: Patient to follow-up with his urologist and caregivers he will be returned to hospice I would recommend that if he does have a catheter change it be done over a wire which the Coun[place] tip catheter should easily facilitate. Abscess I/D Sedation/analgesia: none Anesthetic used: lidocaine 2% (2% viscous lidocaine and EMLA cream) Catheter Insertion (Urinary) Catheter [place] Size: 16 Catheter balloon size (mL): 10 Topical anesthesia used: Yes
== END 2024-03-09 00:29 | disposition home or self-care (01) ==
PROVIDERS: Emergency Provider Emergency Medicine
DX: T83.028A Displacement of other urinary catheter, initial encounter (principal); T83.090A Other mechanical complication of cystostomy catheter, initial encounter; N35.916 Unspecified urethral stricture, male, overlapping sites; L30.4 Erythema intertrigo; N36.5 Urethral false passage
CPT/HCPCS: 51798; 99283